=== PATIENT | female | born 1990 | race Caucasian/White ===

== ENCOUNTER 2023-10-20 10:24 | Emergency (ER) | payer OTHER, SELFPAY ==
--- OUTSIDE RECORDS SUMMARY | 2023-10-20 10:27 | XMS REPORT | Continuity of Care Document ---
Author Name Unknown Address [address] [place] [address] [facility] thconnect Address [address] [place] [address] Care Team Providers Care Cruise Director Name Role Phone MAT BROWN Primary Care Physician Rhonda Arellano Attending Clinician Val guerrero GC_GCBZW_Mahi_S Attending Clinician Louise Bhardwaj MD Attending Clinician LOUISE DEVI Attending Clinician Rhonda Xavier Admitting Clinician Val CARLOSGCBZW_Mahi_S Admitting Clinician Nura sawyer Payers Payer Name Policy Type Policy Number Effective Date Expirati on Date Source Problems Condition Name Condition Details Condition Category Status Onset Date Resolution Date Last Treatment Date Treating Clinician Comments Source Obesity (BMI 30-39.9) Obesity (BMI 30-39.9) Disease Active 02-11 00:00: 00 [facility] Allergies, Adverse Reactions, Alerts Allergy Name Allergy Type Status Severity Reaction(s) Onset Date Inactive Date Treating Clinician Comments Source No Known Allergie s DA Active U 2022-07 00:00: 00 [facility] NO KNOWN ALLERGIE S Drug Class Active [facility] Social History Social Habit Start Date Stop Date Quantity Comments Source History SDOH Alcohol Frequency [facility] History SDOH Alcohol St[facility] History SDOH Alcohol Binge [facility] Exposure to SARS-CoV-2 (event) 2022-02-01 00:00:00 2022-02-11 13:29:00 Not sure [facility] Cigarettes smoked current (pack per day) - Reported 2022-02-11 00:00:00 2022-02-11 00:00:00 [facility] Cigarette pack-years 2022-02-11 00:00:00 2022-02-11 00:00:00 [facility] Tobacco use and exposure 2022-02-11 00:00:00 2022-02-11 00:00:00 Smokeless tobacco non-user [facility] Alcohol intake 2022-02-11 00:00:00 2022-02-11 00:00:00 Current drinker of alcohol (finding) [facility] Alcohol Comment 2022-02-11 00:00:00 2022-02-11 00:00:00 3-4x a week [facility] History of tobacco use 2021-08-20 00:00:00 Cigarette Smoker [facility] Sex Assigned At 1990 00:00:00 1990 00:00:00 [facility] Smoking Status Start Date Stop Date Source Ex-smoker 2022-02-11 00:00:00 2022-02-11 [facility]00[facility] Ordered Medication Name Filled Medication Name Start Date Stop Date Current Medication? Ordering Clinician Indication Dosage Frequency Signature (SIG) Comments Components Source metroNIDAZO LE 500 mg tablet 02-11 00:00: 00 Yes [id number] 500mg Take 1 tablet by mouth every 12 (twelve) hours. [facility] losartan-hy drochloroth iazide 100-12.5 mg per tablet 11-27 00:00: 00 Yes 1{tbl} Take 1 tablet by mouth in the morning. [facility] SERTraline 100 mg tablet 11-27 00:00: 00 Yes 100mg Take 100 mg by mouth in the morning. [facility] Vital Signs Vital Name Observation Time Observation Value Comments S ource Systolic blood pressure 2022-02-11 18:59:00 141 mm[Hg] [place] [facility] Diastolic blood pressure 2022-02-11 18:59:00 95 mm[Hg] [place] [facility] Heart rate 2022-02-11 18:58:00 87 /min [facility] Body temperature 2022-02-11 18:58:00 37 [facility] Respiratory rate 2022-02-11 18:58:00 18 /min [facility] Body height 2022-02-11 18:58:00 177.8 cm [facility] Body weight 2022-02-11 18:58:00 115.214 kg [facility] BMI 2022-02-11 18:58:00 36.45 kg/m2 [facility] Procedures Procedure Date / Time Performed Performing Clinicia n Source [id number] 2023-05-20 00:00:00 [facility] [id number] 2023-05-20 00:00:00 [facility] [id number] 2023-05-20 00:00:00 [facility] Encounters Start Date/Time End Date/Time Encounter Type Admission Type Attending Clinicians Care Facility Care Department Encounter ID Source 2023-05-20 09:37:00 2023-05-21 20:12:00 Inpatient Rhonda Farooq [facility] OB [id number] 27 [facility] 2023-05-19 00:00:00 2023-05-19 00:00:00 Outpatient GC_GCBZW_Ka diyala_S [facility] [id number] [facility] 2022-02-11 13:30:00 2022-02-11 14:35:14 Office Visit Louise Devi [facility] [id number] [facility] 2022-02-11 13:30:00 2022-02-11 14:35:14 Outpatient R LOUISE DEVI [facility] [id number] [facility] 2022-02-11 13:30:00 2022-02-11 14:35:14 Outpatient LOUISE SALGADO [facility] [id number] [facility] Results Test Description Test Time Test Comments Results Result Co mments Source HGB [id number] 06:48:00* Test Item Value Reference Range Interpretation Comme nts HEMOGLOBIN (test code = HGB) 10.2 g/dL 10.1-13.8 N HEMATOCRIT (test code = HCT) 30.5 % 32.5-41.8 L HGB [id number] 20:04:00* Test Item Value Reference Range Interpretation Comme nts HEMOGLOBIN (test code = HGB) 11.7 g/dL 10.1-13.8 N HEMATOCRIT (test code = HCT) 34.2 % 32.5-41.8 N HGB [id number] 14:52:00* Test Item Value Reference Range Interpretation Comme nts HEMOGLOBIN (test code = HGB) 12.3 g/dL 10.1-13.8 N HEMATOCRIT (test code = HCT) 36.0 % 32.5-41.8 N CBC W/AUTO [id number] 11:21:00* Test Item Value Reference Range Interpretation Comme nts WHITE BLOOD CELL (test code = WBC) 6.9 K/mm3 6.5-12.3 N RED BLOOD CELL (test code = RBC) 4.37 M/mm3 3.51-4.69 N HEMOGLOBIN (test code = HGB) 12.9 g/dL 10.1-13.8 N HEMATOCRIT (test code = HCT) 39.0 % 32.5-41.8 N MEAN CELL VOLUME (test code = MCV) 89.2 fL 84.6-96.6 N MEAN CELL HGB (test code = MCH) 29.5 pg 27.3-33.9 N MEAN CELL HGB CONCETRATION ( test code = MCHC) 33.1 gm/dL 32.0-34.2 N RED CELL DISTRIBUTION WIDTH (test code = RDW) 12.8 % 12.2-16.3 N PLATELET COUNT (test code = PLT) 215 K/mm3 134-363 N MEAN PLATELET VOLUME (test c ode = MPV) 10.6 fL 9.2-12.7 N NEUTROPHIL % (test code = NT%) 67.0 % 57.9-77.3 N LYMPHOCYTE % (test code = LY%) 22.6 % 14.5-29.7 N MONOCYTE % (test code = MO%) 8.3 % 3.6-10.2 N EOSINOPHIL % (test code = EO%) 1.5 % 0.0-3.0 N BASOPHIL % (test code = BA%) 0.3 % 0.1-0.9 N NEUTROPHIL # (test code = NT#) 4.6 K/mm3 LYMPHOCYTE # (test code = LY#) 1.6 K/mm3 MONOCYTE # (test code = MO#) 0.6 K/mm3 EOSINOPHIL # (test code = EO#) 0.10 K/mm3 BASOPHIL # (test code = BA#) 0.0 K/mm3 RBC MORPHOLOGY REQUIRED (valentin t code = RBCM) NORMAL NORMAL PLATELET MORPHOLOGY REQUIRED (test code = PLTMR) NORMAL NORMAL AG HEPATITIS B [id number] 14:55:00* Test Item Value Reference Range Interpretation Comme nts AG HEPATITIS B SURFACE (test code = HBSAG) NONREACTIVE NONREACTIVE AB HEPATITIS C [id number] 14:55:00* Test Item Value Reference Range Interpretation Comme nts AB HEPATITIS C (test code = HCVAB) NONREACTIVE NONREACTIVE SIGNAL TO CUTOFF (test code = CUTOFF) 0.08 <0.80 N AB [id number] 14:55:00* Test Item Value Reference Range Interpretation Comme nts AB TREPONEMA (test code = TREPAB) NONREACTIVE NONREACTIVE AB HIV 1 14:55:00* Test Item Value Reference Range Interpretation Comme nts AB HIV 1 2 (test code = [id number]) NONREACTIVE NONREACTIVE Done by [employer] Eloqu[employer] 4th Gen HIV Ag/Ab Combo Screen COMPREHENSIVE METABOLIC [id number] 14:03:00* Test Item Value Reference Range Interpretation Comme nts SODIUM (test code = NA) 137 mEq/L 135-145 N POTASSIUM (test code = K) 4.0 mEq/L 3.5-5.0 N CHLORIDE (test code = CL) 102 mEq/L 100-115 N CARBON DIOXIDE (test code = CO2) 25 mEq/L 22-31 N ANION GAP (test code = GAP) 14.50 10-20 N GLUCOSE (test code = GLU) 114 mg/dL 65-110 H BLOOD UREA NITROGEN (test code = BUN) 7 mg/dL 7-18 N GLOMERULAR FILTRATION RATE (test code = GFR) 116 ml/min >60 N The Glomerular Filtration Rate is a calculated parameterbased on serum Creatinine, patient age and sex. GFR valuesless than 60 mL/min/1.73 square meters are indicative ofChronic Kidney Disease. Values less than 15 mL/min/1.73square meters indicate Kidney failure. The calculation forGFR is based on the CKD-EPI (2020) calculation. This formulais race indifferent and is the recommended formula for GFRby the National Kidney Foundation for Adults.The GFR will not calculate if the sex is unknown or if thepatient's age is <18 years. CREATININE (test code = CREAT) 0.7 mg/dL 0.5-1.0 N TOTAL PROTEIN (test code = PROT) 6.2 gm/dL 6.3-8.2 L ALBUMIN (test code = ALB) 2.6 gm/dL 3.4-4.8 L CALCIUM (test code = CA) 9.2 mg/dL 8.4-10.2 N BILIRUBIN TOTAL (test code = BILT) 0.3 mg/dL 0.2-1.0 N SGOT/AST (test code = AST) 10 units/L 15-37 L SGPT/ALT (test code = ALT) 13 units/L 12-78 N ALKALINE PHOSPHATASE TOTAL (test code = ALKP) 132 units/L 46-116 H CBC W/AUTO [id number] 13:20:00* Test Item Value Reference Range Interpretation Comme nts WHITE BLOOD CELL (test code = WBC) 7.1 K/mm3 6.5-12.3 N RED BLOOD CELL (test code = RBC) 3.98 M/mm3 3.51-4.69 N HEMOGLOBIN (test code = HGB) 12.1 g/dL 10.1-13.8 N HEMATOCRIT (test code = HCT) 35.6 % 32.5-41.8 N MEAN CELL VOLUME (test code = MCV) 89.4 fL 84.6-96.6 N MEAN CELL HGB (test code = MCH) 30.4 pg 27.3-33.9 N MEAN CELL HGB CONCETRATION ( test code = MCHC) 34.0 gm/dL 32.0-34.2 N RED CELL DISTRIBUTION WIDTH (test code = RDW) 12.8 % 12.2-16.3 N PLATELET COUNT (test code = PLT) 213 K/mm3 134-363 N MEAN PLATELET VOLUME (test c ode = MPV) 10.9 fL 9.2-12.7 N NEUTROPHIL % (test code = NT%) 68.8 % 57.9-77.3 N LYMPHOCYTE % (test code = LY%) 23.9 % 14.5-29.7 N MONOCYTE % (test code = MO%) 5.4 % 3.6-10.2 N EOSINOPHIL % (test code = EO%) 1.4 % 0.0-3.0 N BASOPHIL % (test code = BA%) 0.4 % 0.1-0.9 N NEUTROPHIL # (test code = NT#) 4.9 K/mm3 LYMPHOCYTE # (test code = LY#) 1.7 K/mm3 MONOCYTE # (test code = MO#) 0.4 K/mm3 EOSINOPHIL # (test code = EO#) 0.10 K/mm3 BASOPHIL # (test code = BA#) 0.0 K/mm3 RBC MORPHOLOGY REQUIRED (valentin t code = RBCM) NORMAL NORMAL PLATELET MORPHOLOGY REQUIRED (test code = PLTMR) NORMAL NORMAL Notes Date/Time Note Provider Source 2023-05-21 18:11:00 [id number] [id number]+KGc/wdDfziq LaCZxTB2AvIbYF+[id number]:11:00 [facility]OB Disch PostpartumREPORT#:[id number] REPORT STATUS: SignedREPORT INITIALIZATION DATE:05/21/23 TIME: 1810 PATIENT: QUE MARTE UNIT #: [id number]#: [id number] ROOM/BED: 4624-ADOB: [birth year] AGE: 33 SEX: F ATTEND: Rhonda Mcfarland MDADM AUTHOR: Anitha Martinez MDREPT SERVICE DT/TIME: 05/21/231810* ALL edits or amendments must be made on the electronic/computer document * Subjective SubjectiveAdmission EGA: Weeks: 38 Days: 2Status/day: post operative (day 1)Patient reports: Patient reports: Yes: normal lochia, pain management effective, tolerating po well, voiding well, tolerating ambulation. No: complaints, nausea, vomiting, excessive bleeding, abdominal pain. Objective GeneralVS:Vital Signs Date Temp Pulse Resp B/P B/P Mean Pulse Ox FiO2 05/20-05/21 97.8-98.5 74-93 18- 121-136/70-78 Last Documented: Result Date Time B/P 05/21 07 Temp 98.5 05/21 0739 Pulse 82 05/21 0739 Resp 19 05/21 0739 B/P Mean 98.0 05/20 1600 Pulse Ox 99 05/20 1600 PATIENT WEIGHT: Weight (lb): Weight (oz): Weight (kg): 122.730137 Physical ExamBreasts: Breasts: normal, fillingCardiac: normal rhythmLungs: unlabored breathingNeuro: Exam: alert, oriented t0Xbrdlqz: post gravid, soft, no abnormal tendernessIncision site: well approximated edges, dry, no drainageUterus: involution appropriate, non-tenderFundus: firm, below the umbilicusLochia: normal ResultsFindings/Data:Laboratory Tests: 05/21 05/20 05/20 05/20 0546 1923 1442 1102 Hematology WBC (6.5 - 12.3 K/mm3) 6.9 RBC (3.51 - 4.69 M/mm3) 4.37 Hgb (10.1 - 13.8 g/dL) 10.2 11.7 12.3 12.9 Hct (32.5 - 41.8 %) 30.5 L 34.2 36.0 39.0 MCV (84.6 - 96.6 fL) 89.2 MCH (27.3 - 33.9 pg) 29.5 MCHC (32.0 - 34.2 gm/dL) 33.1 RDW (12.2 - 16.3 %) 12.8 Plt Count (134 - 363 K/mm3) 215 MPV (9.2 - 12.7 fL) 10.6 Neut % (Auto) (57.9 - 77.3 %) 67.0 Lymph % (Auto) (14.5 - 29.7 %) 22.6 [place] % (Auto) (3.6 - 10.2 %) 8.3 Eos % (Auto) (0.0 - 3.0 %) 1.5 Baso % (Auto) (0.1 - 0.9 %) 0.3 Neut # (Auto) (K/mm3) 4.6 Lymph # (Auto) (K/mm3) 1.6 [place]oux # (Auto) (K/mm3) 0.6 Eos # (Auto) (K/mm3) 0.10 Baso # (Auto) (K/mm3) 0.0 Discharge Summary GeneralFree Text A P:33yo with cHTN s/p scheduled RCS, myomectomy, BS @38.5 wks 1. POD# 0-LNUXP-xerktjp freely-Ambulating without difficulty-johnny reg diet, passing flatus-Pain well controlled on PO meds-Hb 12.1 > ebl 1400 > 10.2, acute blood loss anemia, asymptomaticOB CWCC Dr. Mcfarland, Rh pos RNI, VIPMH: depression, CHTN (labetalol 100mg BID), uterine fibroids (largest 6.6cm)PSH: c/s x 3, BS, myomectomy nowSoc: JESSICA, Ciro Medina, girl Anushka Sarah, Pedi: Jonas Dispo: routine PP/post op care. Pt desires to be dc todayAssessment: nml progress, acute blood loss anemiaDate of admission:Date of admission: 05/20/23 Hospital course: repeat admitProcedures: repeat CS deliveryDischarge condition: stableDischarge to: Home/Self CareDischarge diagnosis: full-term uncomp deliveryNursing data:The data set between the solid lines has been imported from nursing documentation. Any exceptions have been noted below under Provider comments. Delivery date A: 05/20/23 Delivery time A: 1242Birthweight (gm) A: 3210Feeding preference: Gender infant A: FemaleApgar 1 minute infant A: 5 minutes infant A: 10 minutes A: Provider comments on imported nursing data: [] Plan: routine care, discharge today Discharge InstructionsInstructions: routine instr sheet given, instr and warnings rev'd, specific instr as notedDiet: RegularActivity: As Tolerated, Do not Submerge Incision, No [place] for 6 Wks, No Strenuous ActivityAdditional discharge routines: Attending Follow-Up, Wound/Dressing CareWound/dressing care: Do not submerge incision, Keep wound clean and dryContraception discussed: abstinence for 4-6 weeks, will discuss at PP visitDischarge meds:Start taking the following new medications:IBUPROFEN (MOTRIN) 600 MG TAB 600 MILLIGRAM ORAL EVERY 6 HOURS. Qty = 30 Refills = 1 HYDROcodone/APAP (HYDROcodone/APAP 5/325) 5 MG-325 MG TAB 1 TABLET ORAL EVERY FOUR HOURS. Qty = 20 No Refills Prescriptions: e-prescribeRx drug database reviewed: yes at [address] [facility] #:[id number] OF REPORT CLClinical [id number]:11:00F.[id number] able for patient nqanKMSJPAFSIHPUGW2170-19-99U30:14:32 [facility] 2023-05-21 11:05:00 [id number] wKkGgkmKB/oW2RpAyolL3GhUCCJ6860-63-97T43:05:00 [facility] ([facility])OB Postpart Progr NoteREPORT#:[id number] REPORT STATUS: SignedREPORT INITIALIZATION DATE:05/21/23 TIME: 110 PATIENT: QUE MARTE UNIT #: [id number]#: [id number] [address] [birth year] AGE: 33 SEX: F ATTEND: Rhonda Mcfarland MDA AUTHOR: John Dao MDREPT SERVICE DT/TIME: 05/21/23 1105* ALL edits or amendments must be made on the electronic/computer document * Subjective SubjectiveAdmission EGA: Weeks: 38 Days: 2EGA at delivery (wks/days): 38 weeks (2 days)Status/Day: post operative (day 1)Patient reports: Patient reports: Yes no complaints, Yes normal lochia, Yes pain management effective, Yes tolerating po well, Yes tolerating ambulation, Yes flatus, No bowel movement, Nonausea, No vomiting, No excessive bleeding, No abdominal pain, No perineal pain,No difficulty nursing, No headache, No blurred vision Comments:Tam removed this morning. Due to void Objective Nursing Documentation ReviewNursing Data:The data set between the solid lines has been imported from nursing documentation. Any exceptions have been noted below under Provider comments. Feeding preference: Post hemorrhage risk score: HighRisk Provider comments on imported nursing data: [] GeneralVS:Vital Signs: Date Time Temp Pulse Resp B/P B/P Pulse O2 O2 Flow FiO2 Mean Ox Delivery Rate 05/21 0739 98.5 82 19 136/78 05/21 0440 97.8 74 18 129/78 05/21 0022 98.1 93 18 122/70 05/20 2035 98.1 82 18 121/76 05/20 1600 98.0 05/20 1600 82 117/87 99 05/20 1545 96.0 05/20 1545 92 122/79 99 05/20 1532 95.0 05/20 1532 124/81 05/20 1530 93 99 05/20 1516 77.0 05/20 1516 105/54 05/20 1515 101 100 05/20 1501 79.0 05/20 1501 127/55 05/20 1500 106 99 05/20 1445 105.0 05/20 1445 109 141/81 99 05/20 1430 102.0 05/20 1430 108 141/76 98 05/20 1415 99.0 05/20 1415 97.5 143/76 PATIENT WEIGHT: Weight (lb): Weight (oz): Weight (kg): 122.092932 Physical ExamLungs: unlabored breathing, no distressNeuro: Exam: alert, oriented x3, normal speechAbdomen: soft, no abnormal tenderness, no guarding, no rebound tendernessIncision site: well approximated edges, dry, no drainage, no inflammationFundus: firm, below the umbilicus, non-tenderLochia: normalLower extremities: Edema: none Calf tenderness: negative ResultFindings/Data:Laboratory Tests: 05/21 05/20 05/20 0546 1923 1442 Hematology Hgb (10.1 - 13.8 g/dL) 10.2 11.7 12.3 Hct (32.5 - 41.8 %) 30.5 L 34.2 36.0 Diagnosis, Assessment Plan Diagnosis, Assessment PlanFree text A P:33yo with cHTN s/p scheduled RCS, myomectomy, BS @38.5 wks 1. POD# 1-AFVSS-Due to void after tam removed this morning-Ambulating without difficulty-johnny reg diet, passing flatus-Pain well controlled on PO meds-Hb 12.1 > ebl 1400 > 10.2, acute blood loss anemia, asymptomaticOB CWCC Dr. Mcfarland, Rh pos RNI, VIPMH: depression, CHTN (labetalol 100mg BID), uterine fibroids (largest 6.6cm)PSH: c/s x 3, BS, myomectomy nowSoc: Ciro LOPEZ, girl Anushka Sarah, Pedi: Jonas Dispo: routine PP/post op care. Pt desires to be dc today pending voiding and pain well controlled on po meds this afternoon. at 1114 RPT #:[id number] OF REPORT PRProgress [id number]:05:00F.[id number] able for patient pypmHOHGLQVISOHUGC2286-47-53Q41:14:18 [facility] 2023-05-20 14:04:00 [id number] xQLDYwK2vYEK+cDkC7NRIiTCxJQLm Wt9NSuqzrSRgQh06z/Pmfx+1pD/8802-22-47D70:04:00 [facility] ([facility])OB Delivery NoteREPORT#:[id number] REPORT STATUS: SignedREPORT INITIALIZATION DATE:05/20/23 TIME: 1404 PATIENT: QUE MARTE UNIT #: [id number]#: [id number] [facility]BED: [facility]-ADOB: [birth year] AGE: 33 SEX: F ATTEND: Rhonda Mcfarland MDADM AUTHOR: Rhonda Mcfarland MDREPT SERVICE DT/TIME: 05/20/23 1404* ALL edits or amendments must be made on the electronic/computer document * OB Delivery Nursing Documentation ReviewNursing data:The data set between the solid lines has been imported from nursing documentation. Any exceptions have been noted below under Provider comments. ROM date: 05/20/23 ROM time: 1242Membranes rupture method: AROMAmniotic fluid color: BloodyAmniotic fluid amount: Steroids prior to arrival: Antibiotic prophylaxis given: YesPost hemorrhage risk score: HighRisk Delivery date infant A: 05/20/23 Delivery time infant A: 1242Birthweight (gm) A: 3210Weight (lb) infant A: Weight (oz) infant A: Gender infant A: FemaleApgar 1 minute A: 5 minutes A: 10 minutes A: Cord pH obtained A: Vacuum time infant A: Vacuum # pulls infant A: Vacuum # popoffs infant A: QBL at delivery: Provider comments on imported nursing data: [] Pre-deliveryNewborn evaluation at delivery: NRP certified personnel, teamAdmission EGA: Weeks: 38 Days: 2EGA at delivery (wks/days): 38 weeks (2 days)Admission indication:chronic hypertension, prior csection x2, fibroid uterus, desires sterilization Blood Loss/DetailsBlood loss at delivery: >/= 1000ml = pp hemorrBlood loss with: change in mental statusCause of bleeding: uterine laceration (fibroids in lower segment)Management: uterotonic agent(s), suture/repair, TXAEBL at delivery (ml's): 1400 Baby A InformationBaby A information Delivery date: 05/20/23 Delivery time: 1242 status: live born Wt of baby (lbs/oz): 7#10 Gender: female (Anushka) 1 minute: 7 5 minutes: 8 Presentation: vertex Anomalies:none seenABG details Baby A Cord blood gases: not collectedNuchal cord Baby A Nuchal cord: no Operative Note-Full)(Start date: 05/20/23)(Pre-procedure diagnosis:33yo @38.2 chronic hypertension, prior csection x2, fibroid uterus, desires sterilization )(Post-procedure diagnosis: same as pre-procedure dx)(Procedures performed:repeat csection with extension into active segmentmyomectomy (2 fibroids 340grams)bilateral salpingectomies )(Technique/Procedure: After informed consent was obtained, the patient was taken to the operating room where anesthesia was administered and found to be adequate. She was then prepped and draped in sterile fashion in a dorsal supine position with a leftward tilt. A time out procedure was then performed and the OR team agreed to the planned procedure. The patient's abdomen was then tested with an Allis clamp and anesthesia was found to be adequate. A Pfannenstiel skin incision was then made with the scalpel and carried down to the underlying fascia. The fascia was then scored in the midline and the incision was then extended laterally using Lemus scissors. The superior aspect ofthe fascial incision was then grasped with Roland clamps, elevated and rectus muscles were dissected off. The inferior aspect of the fascial incision was then grasped with Roland clamps, elevated and rectus muscles were dissected off. The rectus muscles were then in the midline and the peritoneum identified in a clear area and entered bluntly. The bladder was densely adherent to the lower uterine segment. The peritoneal adhesions were dissected with the bovie to mobilize the bladder. Then the peritoneum was then extended superior and inferiorly with good visualization of the bladder. The bladder blade was then inserted. No bladder flap could be created due to dense adhesions. The bladder blade was then reinserted. The uterus had at least3 anterior intramuscular fibroids in the lower uterine segment (6cm right and two 3cm fibroids anterior, middle). With care, the scalpel was used to incise the uterus in between the 6cm and 3cm fibroid in a J fashion with vertical extension on left side. The incision was then extended laterally using Bandagescissors. The infant was then delivered in cephalic presentation [ atraumatically, nose and mouth were suctioned, cord was clamped and cut after 60 seconds, and was handed off to waiting nurse. Nuchal cord was not noted]. Cord blood banking was not collected. The placenta was then removed manually and the uterus was exteriorized and was cleared of all clots and debris with a moist lap sponge. There was brisk bleeding noted from the 6cm uterine fibroid on the right side. The hysterotomy was then repaired using 0 Monocryl in a running locked fashion, but the suture tore through easily. Using 0 Vicryl in igccuy-uu-oetvy fashion, the hysterotomy was closed in two layers, vicryl followed by monocryl. The right angle was continuously oozing. On closer inspection posteriorly, the right vessels had an expanding hematoma. Using 0-vicryl, an O'Nelson technique was used posteriorly to suture ligate the hematoma to excellent hemostasis. Anteriorly, vicryl was used in the same fashion until all active bleeding stopped. The right fallopian tube was then grasped with a Jovanni clamp and salpingectomyperformed using handheld Ligasure. Same procedure carried out on the left. Bilateral tubes sent to pathology. Excellent hemostasis noted at pedicles. The uterus was then returned to the abdomen. The pelvic colic gutters were then cleared off all clots and debris using a moist lap sponge. The hysterotomy and bladder were then reinspected and found to be hemostatic. Then, Surgicele snow and ribbon were placed over the hysterotomy and right angle to maintain continued hemostasis. The rectus muscles and peritoneum were then reapproximated in the midline using 2.0 Chromic in a mattress suture fashion. The muscle and fascia were then examined and found to be hemostatic. The fascia was then reapproximated using 0Vicryl in a running fashion. The subcutaneous tissue was then irrigated and bovie cautery was used to obtain hemostasis. The subcutaneous tissue was then reapproximated using 2.0 Plain. The skin was then closed with 3.0 Monocryl in asubcuticular fashion. The patient had brisk bleeding after delivery. I called for 2units of blood after she was given Hemabate and TXA. One unit of blood was administered intraoperatively as the patient felt very light headed and nauseated, despite normal vital signs. She was then taken to recovery room in stable condition. Sponge, lap and needle counts were correct times 3. Antibiotics were given prior to the start of surgery for surgical prophylaxis. )(Primary Surgeon: Rhonda Mcfarland MD)(Blueprint Processor(s): SVITLANA ReyAIndications:prior csection x2, fibroid uterus, desires sterilization )(Operative findings:enlarged fibroid uterus with fibroids in lower uterine segmentdense adhesions of the bladder to the lower uterine segmentnormal ovaries and fallopian tubes )(Complications: none)( QBL (ml's): 2600)( Estimated blood loss (ml): 1400Blood products: RBC (1unit ))(Specimens removed/altered: two intramural uterine fibroids (6cm and 2cm) totalling 340grams Fluids:2L fluids, 1unit prbcUrine output:150Disposition: PACUCounts: Sponge count: correct Instrument count: correct Needle count: correctWound class: clean/contaminated Delivery DeliveryCesarean section indication: previous Priority: scheduled Antibiotic prior to incision: 1 dose )(SCDs applied activated: Yes Uterine incision: low transverse Uterine scar: intact Consent: indication discussed, questions answered, pt consent to op delivery Mother's condition: mother stable 's condition: infant stable in room at 14[address] [facility] #:[id number] OF REPORT CLClinical [id number]:04:[id number] able for patient [id number]:21:27 [facility] 2023-05-20 12:22:00 [id number] [id number]:22:00 [facility] ([facility])Clinical NoteREPORT#:[id number] REPORT STATUS: SignedREPORT INITIALIZATION DATE:05/20/23 TIME: 1222 PATIENT: QUE MARTE UNIT #: [id number]#: [id number] ROOM/BED: [place] [address]-ADOB: [birth year] AGE: 33 SEX: F ATTEND: Rhonda Mcfarland MDADM AUTHOR: Rhonda Mcfarland MDREPT SERVICE DT/TIME: 05/20/23 1222* ALL edits or amendments must be made on the electronic/computer document * Clinical NoteNote:See paper H P for full details 33yo @38.5 w/chtn and prior csection x2 for scheduled repeat and sterilization by salpingectomiesHb 12.1OB [facility] Dr. Mcfarland, Rh pos RNI, VIPMH: depression, CHTN (labetalol 100mg BID), uterine fibroids (largest 6.6cm)PSH: c/s x 2 Soc: Ciro LOPEZ, girl Anushka Sarah, Pedi: Jonas at 1225 RPT #:[id number] OF REPORT CLClinical [id number]:22:[id number] able for patient [id number]:25:29 HCAWH
[2023-10-20 11:18] LABS: Absolute Eosinophils 0.2 K/uL (0-0.5); Absolute Lymphocytes (CBC) 1.8 K/uL (0.7-4.9); Absolute Monocytes 0.6 K/uL (0.1-1.3); Absolute Neutrophil 3.4 K/uL (1.8-8.0); Basophils % 0.8 % (0-1.3); Eosinophils % 2.8 % (0-4.4); Hematocrit 44.7 % (36.0-45.0); Hemoglobin 14.6 g/dL (12.0-15.0); Lymphocytes % 30.5 % (15.3-44.8); MCHC 32.7 g/dL (32.0-36.0); MCV 88.6 fL (80-100); MPV 8.1 fL (7.6-11.3); Monocytes % 9.1 % (3.3-12.3); Neutrophils % 56.8 % (41.7-73.7); Nucleated Red Blood Cells % 0.1 % (0-0); Platelets 330 thou/uL (152-406); RBC Red Blood Cell Count 5.04 M/uL (3.86-4.86); Red Cell Distribution Width 17.9 % (12.1-15.2); Sqamous Epithelial <5 /HPF (None Seen); Urine Bacteria None Seen /HPF (<20); Urine Bilirubin NEGATIVE (Negative); Urine Blood 2+ (Negative); Urine Clarity Clear (Clear); Urine Color Light-Yellow (Yellow); Urine Culture Reflex Order NOT NEEDED; Urine Glucose NEGATIVE (Negative); Urine Ketones NEGATIVE (Negative); Urine Microscopic Reflex YN ORDER UMIC; Urine Mucus Slight /HPF (None Seen); Urine Nitrite NEGATIVE (Negative); Urine Protein 1+ (Negative); Urine RBC >50 /HPF (None Seen); Urine Urobilinogen Normal (Normal); Urine WBC <5 /HPF (<5); Urine pH 6.5 (5.0-7.0)
[2023-10-20 11:35] LABS: Albumin 3.7 g/dL (3.4-5.0); Albumin/Globulin Ratio 0.9 (1.1-1.8); Anion Gap 8.5 mEq/L (5.0-15.0); Bilirubin Total 0.4 mg/dL (0.2-1.0); Globulin 3.9 g/dL (2.3-3.5); Potassium 3.5 mEq/L (3.5-5.1); Protein, Total 7.6 g/dL (6.4-8.2)
--- NOTE | 2023-10-20 11:38 | RAD REPORT ---
EXAM DESCRIPTION: CTAbdomen Pelvis W Contrast - 10/20/2023 11:30 am CLINICAL HISTORY: Abdominal pain. ABD PAIN COMPARISON: No comparisons TECHNIQUE: Biphasic CT imaging of the abdomen and pelvis was performed with 100 ml non-ionic IV cont rast. All CT scans are performed using dose optimization technique as appropriate and may include automated exposure control or mA/KV adjustment according to patient size. FINDINGS: The lung bases are clear. The liver demonstrates diffuse fatty infiltration. The spleen, pancreas, adrenal glands and kidneys a re within normal limits. No bowel obstruction, free air, free fluid or abscess. Small fat containing ventral hernia in which a lso demonstrates a slight amount sigmoid colon within the hernia sac. This is in the region of the pa nnus/ anterior pelvis. No evidence of incarceration. The appendix is normal. No evidence of signific ant lymphadenopathy. No suspicious bony findings. IMPRESSION: No acute intra-abdominal or pelvic finding. Diffuse fatty liver. Small ventral hernia containing fat and a small amount of sigmoid colon lower pelvis anteriorly. No s trangulation or incarceration.
--- NOTE | 2023-10-20 11:44 | ER ---
Nurse's Notes [facility] Name: Laura Beltran Age: 33 yrs Sex: Female : 1990 Arrival Date: 10/20/2023 Time: 10:24 Bed 13 Private MD: Diagnosis: Ventral hernia without obstruction or gangrene;Abdominal pain, unspecified Presentation: 10/19 10:35 Chief complaint: Patient states: "I started having lower abdominal pain that radiates mb9 to my bacl and dizziness when standing this morning. I have a hernia and had a 5 months ago". Coronavirus screen: Vaccine status: Patient reports being unvaccinated. Ebola Screen: No symptoms or risks identified at this time. Initial Sepsis Screen: Does the patient meet any 2 criteria? No. Patient's initial sepsis screen is negative. Does the patient have a suspected source of infection? No. Patient's initial sepsis screen is negative. Risk Assessment: Do you want to hurt yourself or someone else? Patient reports no desire to harm self or others. Onset of symptoms was October 20, 2023. 10:35 Acuity: BAUDILIO 3 mb9 10:35 Method Of Arrival: Wheelchair mb9 Triage Assessment: 10:45 General: Appears in no apparent distress. uncomfortable, Behavior is calm, cooperative, bp appropriate for age. Pain: Complains of pain in umbilical area. GI: Abdomen is non-distended. Historical: - Allergies: 10:34 No Known Allergies; mb9 - Home Meds: 10:34 Lisinopril Oral [Active]; mb9 - PMHx: 10:34 Hypertension; mb9 - PSHx: 10:34 section; mb9 - Immunization history:: Adult Immunizations up to date. - Infectious Disease History:: Denies. - Social history:: Smoking status: Patient denies any tobacco usage or history of. Screenin:57 [facility] ED Fall Risk Assessment (Adult) History of falling in the last 3 months, bp including since admission No falls in past 3 months (0 pts). Abuse screen: Denies threats or abuse. Denies injuries from another. Nutritional screening: No deficits noted. Tuberculosis screening: No symptoms or risk factors identified. Assessment: 10:45 General: SEE TRIAGE NOTE. bp 11:38 Reassessment: No changes from previously documented assessment. Patient is alert, bp oriented x 3, equal unlabored respirations, skin warm/dry/pink. 12:28 GI: Bowel sounds present X 4 quads. Abd is soft X 4 quads. bp Vital Signs: 10:35 BP 172 / 116; Pulse 108; Resp 18; Temp 97.7; Pulse Ox 100% on R/A; Weight 117.93 kg; mb9 Height 5 ft. 10 in. ; 11:37 BP 153 / 112; Pulse 97; Resp 16; Pulse Ox 100% ; bp 12:26 BP 120 / 71; Pulse 81; Resp 16; Pulse Ox 100% ; bp 10:35 Body Mass Index 37.31 (117.93 kg, 177.8 cm) mb9 ED Course: 10:27 Patient arrived in ED. im 10:28 Niko Land DO is Attending Physician. ms3 10:34 Jay Turner, RN is Primary Nurse. bp 10:34 Arm band placed on. mb9 10:36 Triage completed. mb9 10:57 Patient has correct armband on for positive identification. bp 11:01 Initial lab(s) drawn, by ED staff, sent to lab. Inserted saline lock: 20 gauge in right bc6 antecubital area, using aseptic technique. Blood collected. 11:01 CBC with Diff Sent. 6 11:01 CMP Sent. 6 11:01 Test, Urine Sent. 6 11:01 Urinalysis w/ reflexes Sent. bc6 11:32 CT Abd/Pelvis - IV Contrast Only In Process Unspecified. EDMS 11:44 Cody Quezada MD is Referral Physician. ms3 12:26 Provided Education on: N/A. bp 12:26 No provider procedures requiring assistance completed. IV discontinued, intact, bp bleeding controlled, No redness/swelling at site. Pressure dressing applied. Administered Medications: No medications were administered Medication: 12:26 VIS not applicable for this client. bp Outcome: 11:44 Discharge ordered by . ms3 12:26 Discharged to home ambulatory, with family, bp 12:26 Condition: stable 12:26 Discharge instructions given to patient, Instructed on discharge instructions, follow up and referral plans. Demonstrated understanding of instructions, follow-up care, 12:28 Patient left the ED. bp Signatures: Dispatcher [employer] EDMS Jay Turner, WILLEM RN bp Niko Land DO DO ms3 Madhavi Matthew, WILLEM RN mb9 Simin Parson bc6 Lanette Allan im
--- NOTE | 2023-10-20 11:44 | EDPHYS ---
Physician Documentation [facility] Name: Laura Beltran Age: 33 yrs Sex: Female : 1990 Arrival Date: 10/20/2023 Time: 10:24 Bed 13 Private MD: ED Physician Niko Land HPI: 10/19 10:38 This 33 yrs old Female presents to ER via Wheelchair with complaints of Abdominal Pain, ms3 Dizziness. 10:38 33-year-old female with past medical history of hypertension presents to the emergency ms3 department for umbilical abdominal pain. Patient states she has had a hernia in the area and went to sit up today and developed abdominal pain and dizziness. Patient states the dizziness has resolved however her abdominal pain is currently a 5/10. Patient denies any alleviating or inciting factors. Patient denies nausea, vomiting, fevers, chills. Historical: - Allergies: 10:34 No Known Allergies; mb9 - Home Meds: 10:34 Lisinopril Oral [Active]; mb9 - PMHx: 10:34 Hypertension; mb9 - PSHx: 10:34 section; mb9 - Immunization history:: Adult Immunizations up to date. - Infectious Disease History:: Denies. - Social history:: Smoking status: Patient denies any tobacco usage or history of. ROS: 10:38 Constitutional: Negative for fever, and chills. Cardiovascular: Negative for chest ms3 pain, and palpitations. Respiratory: Negative for shortness of breath, cough, wheezing, and pleuritic chest pain, MS/Extremity: Negative for injury and deformity, Skin: Negative for injury, rash, and discoloration, 10:38 Abdomen/GI: Positive for abdominal pain, Negative for nausea, vomiting, and diarrhea, 10:38 Neuro: Positive for dizziness, 10:38 All other systems are negative, Exam: 10:38 Constitutional: This is a well developed, well nourished patient who is awake, alert, ms3 and in no acute distress. Head/Face: Normocephalic, atraumatic. Neck: Trachea midline, no cervical lymphadenopathy. Supple, full range of motion without nuchal rigidity, or vertebral point tenderness. No Meningismus. Chest/axilla: Normal chest wall appearance and motion. Nontender with no deformity. Cardiovascular: Regular rate and rhythm with a normal S1 and S2. No gallops, murmurs, or rubs. Normal PMI, no JVD. No pulse deficits. Respiratory: Lungs have equal breath sounds bilaterally, clear to auscultation and percussion. No rales, rhonchi or wheezes noted. No increased work of breathing, no retractions or nasal flaring. 10:38 Abdomen/GI: Inspection: abdomen appears normal, Bowel sounds: normal, Palpation: moderate abdominal tenderness, in the umbilical area, Vital Signs: 10:35 BP 172 / 116; Pulse 108; Resp 18; Temp 97.7; Pulse Ox 100% on R/A; Weight 117.93 kg; mb9 Height 5 ft. 10 in. ; 11:37 BP 153 / 112; Pulse 97; Resp 16; Pulse Ox 100% ; bp 12:26 BP 120 / 71; Pulse 81; Resp 16; Pulse Ox 100% ; bp 10:35 Body Mass Index 37.31 (117.93 kg, 177.8 cm) mb9 MDM: 10:37 Patient medically screened. ms3 10:38 Differential diagnosis: Hernia versus appendicitis versus diverticulitis versus ms3 abdominal pain. 11:44 Data reviewed: vital signs, nurses notes, lab test result(s), radiologic studies, and ms3 as a result, I will discharge patient. I considered the following discharge prescriptions or medication management in the emergency department. Care significantly affected by the following chronic conditions: Hypertension. Counseling: I had a detailed discussion with the patient and/or guardian regarding the historical points, exam findings, and any diagnostic results supporting the discharge/admit diagnosis, lab results, radiology results, the need for outpatient follow up, to return to the emergency department if symptoms worsen or persist or if there are any questions or concerns that arise at home. Special discussion: Based on the patient's Hx, exam, and Dx evaluation, there is no indication for emergent surgery or inpatient Tx. It is understood by the patient/guardian that if the Sx's persist or worsen they need to return immediately for re-evaluation. ED course: Discussed labs and CT findings with patient. Patient to follow-up with Dr. Quezada in 2 to 3 days. Patient understands and agrees with plan. All questions were answered. Return precautions discussed include worsening symptoms, or any other concerns. 10/19 10:38 Order name: CBC with Diff; Complete Time: 11:39 ms3 10/19 10:38 Order name: CMP; Complete Time: 11:39 ms3 10/19 10:38 Order name: Test, Urine; Complete Time: 11:39 ms3 10/19 10:38 Order name: Urinalysis w/ reflexes; Complete Time: 11:39 ms3 10/19 10:38 Order name: CT Abd/Pelvis - IV Contrast Only; Complete Time: 11:39 ms3 10/19 10:38 Order name: IV Saline Lock; Complete Time: 11:01 ms3 10/19 10:38 Order name: Labs collected and sent; Complete Time: 11:01 ms3 Administered Medications: No medications were administered Disposition Summary: 10/20/23 11:44 Discharge Ordered Notes: Location: Home ms3 Condition: Stable ms3 Diagnosis - Ventral hernia without obstruction or gangrene ms3 - Abdominal pain, unspecified ms3 Followup: ms3 - With: Cody Quezada MD - When: 2 - 3 days - Reason: Recheck today's complaints Discharge Instructions: - Discharge Summary Sheet ms3 - Abdominal Pain, Adult ms3 - Hernia, Adult ms3 Forms: - Medication Reconciliation Form ms3 - Thank You Letter ms3 - Antibiotic Education ms3 - Prescription Opioid Use ms3 - Patient Portal Instructions ms3 - Leadership Thank You Letter ms3 Signatures: Dispatcher [employer] Jay Stephen, RN RN Niko Downs DO DO ms3 Madhavi Matthew RN RN mb9
[2023-10-20 12:43] VITALS: TEMP 97.7; O2SAT 100
[2023-10-20 13:17] VITALS: BP 120/71
== END 2023-10-20 12:28 | disposition home or self-care (01) ==
LOC: ER 10:24
DX: K43.9 Ventral hernia without obstruction or gangrene (principal)
CPT/HCPCS: 85025; 81001; 36415; 81025; 80053; 74177; Q9967